=== PATIENT | female | born 1990 | race Asian ===

== ENCOUNTER 2018-01-03 20:29 | Emergency (ER) | payer OTHER ==
[~2018-01-03] VITALS: Ht 154.9 cm; Wt 51.8 kg
[2018-01-03 21:59] VITALS: BP 136/94
== END 2018-01-03 22:00 | disposition home or self-care (01) ==
LOC: EME 20:29
DX: S93.402A Sprain of unspecified ligament of left ankle, initial encounter (principal); W10.1XXA Fall (on)(from) sidewalk curb, initial encounter
CPT/HCPCS: 73610; 99281; 99283